=== PATIENT | female | born 1990 | race African-American/Black ===

== ENCOUNTER 2019-05-03 22:24 | Emergency (ER) | payer OTHER ==
[~2019-05-03] VITALS: Ht 167.6 cm; Wt 58.1 kg
[~2019-05-03 22:24] MED LIST: DICY20TA PO; IMODIUM A-D2 MG PO; LEVSIN/SL0.125 MG SL; METOCLOPRAMIDE H5 MG PO
[2019-05-04] MEDS ORDERED: KEFLEX500 MG PO (04:03)
[2019-05-04] MEDS ORDERED: URIN D.S. TABL1 EACH PO (04:03)
== END 2019-05-04 04:14 ==
LOC: ER 22:24
DX: N39.0 Urinary tract infection, site not specified (principal); R50.9 Fever, unspecified

== ENCOUNTER 2021-03-27 10:07 | Outpatient (CLI) | payer OTHER ==
[~2021-03-27 10:07] MED LIST changes: +KEFLEX500 MG PO; +URIN D.S. TABL1 EACH PO
== END 2021-03-27 10:22 | disposition home or self-care (01) ==
LOC: RX STUDY 10:07
PROVIDERS: ATTEND Obstetrics & Gynecology
DX: R10.2 Pelvic and perineal pain (principal); N91.2 Amenorrhea, unspecified